=== PATIENT | male | born 1985 | race Caucasian/White ===

== ENCOUNTER 2022-12-02 13:12 | Inpatient (IN) | payer OTHER, SELFPAY ==
[2022-12-02] VITALS (9 sets, daily range): BP systolic 125–155; BP diastolic 77–98; PULSE 90–137; RESP 18–21; TEMP 36.7–37; O2SAT 95–98; BMI 26.9
--- NOTE | ~2022-12-02 | CT_ITS ---
EXAMINATION: CT brain wo con DATE: 12/02/2022 18:31 INDICATION: altered mental status, fall from seated position . TECHNIQUE: Computed tomography (CT) of the head was performed without intravenous contrast. The mA wa s adjusted according to patient size. Iterative reconstruction technique was employed. The dose-lengt h product was 832.33 mGy-cm. COMPARISON: None. FINDINGS: No acute intracranial hemorrhage or extra-axial fluid collection. No hydrocephalus, mass, or herniation. No acute ischemic infarct. Unremarkable dural venous sinus attenuation. No acute osseous abnormality. The aerated spaces are clear. IMPRESSION: No acute intracranial process. Reviewed, dictated and finalized at location K.
--- NOTE | 2022-12-02 13:29 | ECG_ITS ---
Measurements Intervals [place] Rate: 104 P: 74 IL: 148 QRS: 71 QRSD: 90 T: 48 QT: 341 QTc: 450 Interpretive Statements SINUS TACHYCARDIA OTHERWISE WITHIN NORMAL LIMITS NO PREVIOUS ECG AVAILABLE FOR COMPARISON Electronically Signed On 12-03-2022 7:44:50 CDT by Arturo Montes M.D.
[2022-12-02] MEDS: HALOPERIDOL LACTATE 5 MG/ML VIAL ×2 (13:35→13:54)
--- NOTE | 2022-12-02 13:35 | PC.NURSE ---
patient given 2mg Halodol per EDP Sixto Verbal Order read back.
--- NOTE | 2022-12-02 13:39 | ED.GENADULT ---
HPI - General Adult General Chief complaint: Alcohol Stated complaint: ETOH Time Seen by Provider: 12/02/22 13:28 History of Present Illness HPI narrative: 37-year-old male with history of PTSD presented to the emergency department for evaluation after being intoxicated in a theater and having a syncopal episode. Patient was somewhat combative with EMS and during transport. Patient does have a history of PTSD that is exacerbated by alcohol. Patient does have a significant alcohol history. Family states that the patient was recently discharged from alcohol rehab approximately 2 weeks ago and has been drinking heavily since. Patient does have reported history of alcohol withdrawal seizures. Related Data Home Medications Medication Instructions Recorded Confirmed No Home Medications 12/02/22 12/02/22 Allergies Allergy/AdvReac Type Severity Reaction Status Date / Time No Known Allergies Allergy Verified 12/02/22 13:44 Review of Systems Review of Systems: All systems reviewed & are unremarkable except as noted in HPI and below PMFSH Social History Social History Smoking status: Never smoker Alcohol intake: current Drinks per week: 50 Substance use: never Substance use type: does not use Lack of Transportation: YES Lack of Food: Never True Current Housing: I Have Housing Concerned About Future Housing: No Difficulty Paying Gas/Electric Bills: No Difficulty Paying for Meds: No Currently Unemployed: YES Education: Bachelor's Degree Difficulty w/ Childcare or Family Care: No Spiritual care concerns: No Exam Narrative: APPEARANCE: Heavily intoxicated HEAD: normocephalic, atraumatic. EYES: PERRLA/EOMI, conjunctivae clear. NOSE: Normal no drainage NECK: Supple. No adenopathy, no masses. RESPIRATORY: Airway patent, respirations nonlabored. Clear to auscultation bilaterally, no rales, rhonchi, wheezing. CARDIOVASCULAR: Regular rate and rhythm without murmurs rubs or gallops. ABDOMINAL: Soft, nontender, nondistended, normal bowel sounds MUSCULOSKELETAL: Moves all extremities. Strength/ROM intact, No edema, No calf tenderness. NEURO: Alert. Cranial nerves II through XII intact. Grossly intact SKIN: Warm, dry. Normal Color Course Course Emergency Course: 37-year-old male presented the ED for evaluation after having a syncopal episode secondary to alcohol intoxication. Mother is now present and states that the patient does have a significant history of PTSD. Patient was agitated upon arrival and was treated with 2 mg of IM Haldol. After 15 minutes patient was still agitated and we are unable to establish an IV or obtain vitals so additional 2 mg of IM Haldol was ordered. Mother was updated on the plan for evaluation and treatment. All question concerns were addressed at this time. Patient blood alcohol was greater than 500. Patient does have a history of alcohol withdrawal seizures. Patient's head CT was negative for acute intracranial abnormality. Patient is afebrile with no leukocytosis. Patient's CMP is within normal limits. UA shows no evidence of urinary tract infection. Due to the patient's alcohol intoxication and history of alcohol withdrawal seizures patient will be admitted. Case was discussed with the hospitalist and patient was accepted for admission. Vital Signs Vital signs: Vital Signs Temperature 98.1 F 12/02/22 13:16 Pulse Rate 137 H 12/02/22 13:16 Respiratory Rate 18 12/02/22 13:16 Pulse Oximetry 98 12/02/22 13:16 Oxygen Delivery Room Air 12/02/22 13:16 Temperature 98.6 F 12/02/22 21:08 Pulse Rate 106 H 12/02/22 21:08 Respiratory Rate 20 12/02/22 21:08 Blood Pressure 125/97 H 12/02/22 21:08 Pulse Oximetry 96 12/02/22 21:08 Oxygen Delivery Room Air 12/02/22 13:16 Medical Decision Making Vital Signs Vital Signs: Vital Signs Temperature 98.1 F 12/02/22 13:16 Pulse Rate 137 H 12/02/22 13:16 Respiratory Rate
--- NOTE | 2022-12-02 13:57 | PC.NURSE ---
Patient given 2mg Halodol per Dr. Henson verbal order read back.
[2022-12-02 14:32] LABS: Basophils Absolute Auto 0.1 K/mm3 (0.0-0.1); Basophils Percent Auto 1.1 % (0.2-1.2); Hematocrit 43.7 % (42.0-52.0); Hemoglobin 15.1 g/dL (14.0-18.0); Immature Granulocyte Absolute 0.03 K/mm3 (0.00-0.031); Immature Granulocyte Percent A 0.4 % (0-0.5); Lymphocytes Absolute Auto 0.92 K/mm3 (0.9-3.2); Lymphocytes Percent Auto 11.5 % (18.3-44.2); Mean Corpuscular HGB Conc 34.6 g/dl (32-36); Mean Corpuscular Hemoglobin 31.4 pg (26-34); Mean Corpuscular Volume 90.9 fl (80-100); Mean Platelet Volume 8.9 fl (7.4-10.4); Monocytes Absolute Auto 0.3 K/mm3 (0.1-0.6); Monocytes Percent Auto 3.1 % (2.6-8.5); Neutrophils Absolute Auto 6.7 K/mm3 (1.3-6.7); Neutrophils Percent Auto 83.9 % (45.5-73.1); Platelet Count Result 273 k/mm3 (150-375); Red Blood Count 4.81 M/mm3 (4.6-6.20); Red Cell Distribution Width 12.2 % (11.5-14.5)
[2022-12-02 14:41] LABS: Alanine Aminotransferase 70 U/L (6-50); Albumin Level 4.9 g/dL (3.5-5.1); Alkaline Phosphatase 90 U/L (38-126); Anion Gap 20 mmol/L (8-16); Aspartate Amino Transferase 75 U/L (17-59); Bilirubin,Total 0.7 mg/dL (0.2-1.3); Blood Urea Nitrogen 16 mg/dL (9-20); Calcium 8.4 mg/dL (8.4-10.2); Carbon Dioxide 19 mmol/L (22-30); Chloride 96 mmol/L (98-107); Estimated CRCL calculation 97 ml/min; Estimated Glomerular Filt Rate > 60; Glucose 117 mg/dL (65-110); INR 0.9; Potassium 4.3 mmol/L (3.4-5.0); Prothrombin Time 11.8 Seconds (11.1-14.7); Sodium 135 mmol/L (137-145)
[2022-12-02 14:42] LABS: Partial Thromboplastin Time 23.6 SECONDS (22.3-36.8)
[2022-12-02 15:12] LABS: Ethanol 508 mg/dL (<10)
[2022-12-02] MEDS: SODIUM CHLORIDE 0.9% IV 1,000 ML 999 ML IV CONT ×2 (15:25→16:18)
[2022-12-02 17:09] LABS: Appearance Urine Clear (Clear); Bacteria Urine None Seen /hpf; Bilirubin Urine Negative (Negative); Blood Urine Negative (Negative); Color Urine Yellow (Yellow); Glucose Urine UA Negative (Negative); Ketones Urine 1+ mg/dL (Negative); Leukocyte Esterase Ur Negative LEU/UL (Negative); Nitrate Urine Negative (Negative); Non Pathogenic Casts 0-2; Protein Urine 2+ mg/dL (Negative); RBC Urine 0-2 /hpf (0-2); Specific Grav Ur 1.013 (1.001-1.035); Squamous Epithelial Cell Urine None seen /hpf (Few); Urobilinogen Urine 0.2 mg/dL (<2.0); WBC Urine 0-5 /hpf; pH Urine 5.5 (5.0-9.0)
[2022-12-02 17:14] LABS: Add Urine Microscopic? YES
--- NOTE | 2022-12-02 17:30 | PM.IMHP ---
H&P: HPI History of Present Illness Date/Time: 12/02/22 17:30 Chief Complaint: Altered mental status. Narrative: This is a 37-year-old male with longstanding history of alcohol abuse and posttraumatic stress disorder who presented to the emergency department via EMS from a local movie theater for evaluation of altered mental status. Patient provides the following history and his mother Nkechi mota, with the patient's permission. He recently detoxed at [facility] at the end of October 2022 and about a week ago he started drinking again, up to 1.5 L of vodka a day in addition to wine in unknown amounts. Today he called his mother and asked if she would take him to a movie and she reports that he seemed okay when she picked him up. Once he got to the ear he was a bit tearful though that is not unusual for him with his PTSD. She went to buy some snacks and when she turned around he was gone. He had apparently gone to sit on a bench on the other side of the theater and when she got over to him he was prone on the floor and unresponsive. EMS was summoned and they were suspicious that he was intoxicated. Was aggressive and combative with staff on arrival and was given 5 mg IM Haldol with improvement. Ethyl alcohol level was 508 and he had some mild electrolyte abnormalities. Brain CT did not show any acute findings. Given his level of intoxication and his risk before violent behavior with his PTSD, he is being admitted for close observation. Currently he is awake and alert and is calm. He has no known history of alcohol withdrawal seizures there was no mention of seizure activity today. He denies syncope and near syncope though he does not really remember how he ended up on the ground today. No chest pain, pleuritic pain, or shortness of breath. He has not had fever, chills, or sweats. No recent cold or flu symptoms. No nausea or vomiting. No abdominal pain or epigastric pain. He denies suicidal and homicidal ideations. No tremors, shakes, or hallucinations. Review of Systems Review of Systems: Twelve systems were reviewed and are negative except for as per HPI. [facility] Past Medical History Medical History (Updated 12/02/22 @ 22:08 by Gertrude Callahan PA-C) Alcohol abuse Depression with anxiety Posttraumatic stress disorder Surgical History Surgical History (Updated 12/02/22 @ 22:07 by Gertrude Callahan PA-C) History of shoulder surgery Repair of torn left pectoralis. Status post LASIK surgery of both eyes Family History Family History (Updated 12/02/22 @ 22:07 by Gertrude Callahan PA-C) Other Alcoholism Social History Social History (Updated 12/02/22 @ 22:07 by Gertrude Callahan PA-C) Social History: Surrogate medical decision maker: Nkechi Giles, mother. Code status: Full code. Smoking status: Never smoker Alcohol intake: current Drinks per week: 50 Alcohol use details: Currently drinking 1.5 L of vodka a day. Substance use: never Substance use type: does not use Lack of Transportation: YES Lack of Food: Never True Current Housing: I Have Housing Concerned About Future Housing: No Difficulty Paying Gas/Electric Bills: No Difficulty Paying for Meds: No Currently Unemployed: YES Education: Bachelor's Degree Difficulty w/ Childcare or Family Care: No Additional living arrangements comments: Currently living alone with his dog. Mom lives nearby. Additional occupation/education comments: Disabled . Was in the [employer] for 13 years. Spiritual care concerns: No Meds Home Medications and Allergies Home Medications Medication Instructions Recorded Confirmed Type No Home Medications 12/02/22 12/02/22 History Allergies Allergy/AdvReac Type Severity Reaction Status Date / Time No Known Allergies Allergy Verified 12/02/22 13:44 Vital Signs Vital Signs - 24 hr 12/02/22 13:16 12/02/22 14:03 12/02/22 16:35 Temperature 98.1 F Pulse Rate 137 H 113 H
[2022-12-02 18:49] LABS: Anion Gap 10 mmol/L (8-16); Blood Urea Nitrogen 14 mg/dL (9-20); Calcium 8.1 mg/dL (8.4-10.2); Carbon Dioxide 27 mmol/L (22-30); Chloride 101 mmol/L (98-107); Estimated CRCL calculation 97 ml/min; Estimated Glomerular Filt Rate > 60; Glucose 91 mg/dL (65-110); Potassium 4.5 mmol/L (3.4-5.0); Sodium 138 mmol/L (137-145)
--- NOTE | 2022-12-02 19:37 | ADMGEN ---
This patient, Arturo Armstrong, was admitted to IMU Room 232-01 at 1938. Patient/family oriented to hospital policies and general routines including ID bracelet, bed and alarms, visiting hours, pain management, procedures, bathroom and other care routines, personal items, smoking policy, room service/diet, and visiting hours. Information on how to activate the Rapid Response Team has been discussed. Patient/Family are encouraged to report perceived risks to care and to ask questions if they do not understand what they are told or what they should do.
[2022-12-03] VITALS (9 sets, daily range): BP systolic 140–151; BP diastolic 76–88; PULSE 63–99; RESP 16–20; TEMP 36.2–36.6; O2SAT 96–98
[2022-12-03] MEDS: LORazepam INJ (*CRX) 2 MG/ML VIAL IV PUSH ×2 (00:25→08:44)
[2022-12-03 05:30] LABS: Hematocrit 40.3 % (42.0-52.0); Mean Corpuscular HGB Conc 34.7 g/dl (32-36); Mean Corpuscular Volume 89.2 fl (80-100); Mean Platelet Volume 9.6 fl (7.4-10.4); Platelet Count Result 243 k/mm3 (150-375); Red Blood Count 4.52 M/mm3 (4.6-6.20); Red Cell Distribution Width 12.2 % (11.5-14.5); White Blood Count 6.5 K/mm3 (4.5-10.0)
[2022-12-03 05:52] LABS: Alanine Aminotransferase 72 U/L (6-50); Albumin Level 4.2 g/dL (3.5-5.1); Alkaline Phosphatase 85 U/L (38-126); Anion Gap 8 mmol/L (8-16); Aspartate Amino Transferase 85 U/L (17-59); Bilirubin,Total 0.9 mg/dL (0.2-1.3); Blood Urea Nitrogen 12 mg/dL (9-20); Calcium 8.2 mg/dL (8.4-10.2); Carbon Dioxide 30 mmol/L (22-30); Chloride 98 mmol/L (98-107); Estimated CRCL calculation 88 ml/min; Estimated Glomerular Filt Rate > 60; Glucose 97 mg/dL (65-110); Magnesium 2.1 mg/dL (1.6-2.3); Phosphorus 3.6 mg/dL (2.5-4.5); Potassium 4.3 mmol/L (3.4-5.0); Sodium 136 mmol/L (137-145)
[2022-12-03 07:36] LABS: Hepatitis B Surface Antigen Negative (Negative)
[2022-12-03 07:42] LABS: HAV RESULT Negative (Negative); Hepatitis B Core IgM Result Negative (Negative)
[2022-12-03 07:54] LABS: Hepatitis C Virus Antibody Negative (Negative)
[2022-12-03] MEDS: FOLIC ACID 1 MG TABLET PO (08:44)
[2022-12-03] MEDS: THIAMINE HCL 100 MG TABLET PO (08:44)
--- NOTE | 2022-12-03 12:17 | PM.DS ---
DS: Admitting Diagnosis Discharge Date 12/03/22 Admitting Diagnosis Intoxication DS: Discharge Diagnosis Discharge Diagnosis (1) Alcoholic intoxication: Code(s): F10.929 - Alcohol use, unspecified with intoxication, unspecified Status: Acute (2) Unresponsive episode: Code(s): R41.89 - Other symptoms and signs involving cognitive functions and awareness Status: Acute (3) Elevated LFTs: Code(s): R79.89 - Other specified abnormal findings of blood chemistry Status: Acute (4) Alcohol abuse: Code(s): F10.10 - Alcohol abuse, uncomplicated Status: Acute (5) Posttraumatic stress disorder: Code(s): F43.10 - Post-traumatic stress disorder, unspecified Status: Acute (6) Depression with anxiety: Code(s): F41.8 - Other specified anxiety disorders Status: Acute DS: Summary Hospital Course Reason for hospitalization: 37yo male with history of PTSD presented to the emergency department for evaluation after being intoxicated in a theater and having a syncopal episode.?Please see H&P for details Hospital Course: Patient has a significant history alcoholism. He was recently discharged from alcohol rehab about 3 weeks ago but has been drinking heavily since. Patient has little memory of the events leading up to his hospitalization. Patient was found prone on the floor unresponsive. EMS was summoned. Patient become aggressive and combative when he was more awake. He required Haldol 5 mg IM once. His alcohol level was 508. He had some mild electrolyte abnormalities with metabolic gap acidosis. Was treated with IV fluids. EKG showed sinus tachycardia rate of [address] otherwise [address] Head CT showed no acute intracranial process. CBC was normal. Anion gap closed with the IV fluids. His AST was 75 and ALT 70 and were relatively unchanged on repeat at 85 and 72 respectively. Was suspected the mildly elevated LFTs related to alcoholic hepatitis. Viral hepatitis panel was negative. Urinalysis showed 2+ protein 1+ ketones otherwise negative. TSH was normal. Patient was treated with thiamine and folate. Ativan was available as needed and he required 2 doses. He was not orthostatic. Patient remains stable is requesting discharge. Care coordination was consulted and did evaluate the patient and provided information about alcohol rehab and AA. Patient was educated about the benefits abstain from alcohol use. He states he is not going to be drinking any further. He has good support system. Will send him home with a Librium taper as well as with thiamine and folate. He was advised not to drink alcohol or drive while taking Librium. He voices understanding of this. He overall did well was able to be discharged on 12/03/2022 Status at Discharge Cognitive/behavioral status at discharge: Stable Time Spent with Patient Time attestation: Total time spent providing and/or coordinating discharge services: 34 minutes Exam Narrative: AF 97.1 151/84 75 16 97% ra Gen - NARD Chest - CTA bilaterally, nml RR CV - RRR S1/S2. Tele showing no significant dysrhythmia Abd - Soft, NT/ND, Positive BS Ext - No pedal edema Neuro - Alert and oriented x4. Nonfocal exam. Psych - Nml mood and affect. Calm and not restless or agitated (when examiner returned to the room, patient was resting quietly in bed) Skin - Warm and dry. no diaphoresis. DS: Data Data Completed and Pending Labs on day of discharge: Labs from last 24 hours 12/03/22 12/03/22 12/03/22 04:24 04:24 04:24 WBC RBC Hgb Hct MCV MCH MCHC RDW Plt Count MPV Immature Gran % (Auto) Neut % (Auto) Lymph % (Auto) [place] % (Auto) Eos % (Auto) Baso % (Auto) Lymph # (Auto) [place] # (Auto) Eos # (Auto) Baso # (Auto) Abs Immat Gran (auto) Absolute Neuts (auto) Absolute Nucleated RBC Nucleated RBC % PT INR APTT
== END 2022-12-03 13:09 | disposition home or self-care (01) | DRG 897 ==
LOC: ANHED 14:21 → ANHIMU 19:08
PROVIDERS: Physician Assistant; Admitting Provider Internal Medicine; Emergency Provider Emergency Medicine; Visit Provider Internal Medicine
DX: F10.229 Alcohol dependence with intoxication, unspecified (principal); F43.10 Post-traumatic stress disorder, unspecified; Y90.8 Blood alcohol level of 240 mg/100 ml or more; F41.9 Anxiety disorder, unspecified; F32.A Depression, unspecified
CPT/HCPCS: 36415; 70450; 80048; 80053; 80074; 80307; 81001; 83735; 84100; 84443; 85025; 85027; 85610; 85730; 93005; 96361; 96374; 96376; 99285; A9270; J1630; J2060; J7030